=== PATIENT | female | born 1940 | race Caucasian/White ===

== ENCOUNTER 2018-08-17 09:27 | Emergency (ER) | payer OTHER ==
[~2018-08-17] VITALS: Ht 154.9 cm; Wt 47.6 kg
[~2018-08-17 09:27] MED LIST: NORVASC2.5 MG
[2018-08-17] MEDS ORDERED: METOPROLOL SUCC25 MG (10:04)
[2018-08-17] MEDS ORDERED: CRESTOR10 MG (10:04)
== END 2018-08-17 14:44 | disposition home or self-care (01) ==
LOC: ER 09:27
DX: K52.89 Other specified noninfective gastroenteritis and colitis (principal)

== ENCOUNTER 2020-07-25 04:40 | Emergency (ER) | payer OTHER ==
[~2020-07-25] VITALS: Ht 157.5 cm; Wt 48.1 kg
[~2020-07-25 04:40] MED LIST changes: +CRESTOR10 MG; +METOPROLOL SUCC25 MG
[2020-07-25] MEDS ORDERED: ATACAND32 MG PO ×2 (04:52→09:46)
[2020-07-25] MEDS ORDERED: TOPROL XL25 M1 PO (09:46)
[2020-07-25] MEDS ORDERED: XANAX0.25 MG PO (09:46)
== END 2020-07-25 09:49 | disposition home or self-care (01) ==
LOC: ER 04:40
DX: R42 Dizziness and giddiness (principal); R11.0 Nausea

== ENCOUNTER 2020-08-28 14:10 | Emergency (ER) | payer OTHER ==
[~2020-08-28] VITALS: Ht 154.9 cm; Wt 48.1 kg
[~2020-08-28 14:10] MED LIST changes: +ATACAND32 MG PO; +TOPROL XL25 M1 PO; +XANAX0.25 MG PO
[2020-08-28] MEDS ORDERED: CRESTOR20 MG PO (14:33)
[2020-08-28] MEDS ORDERED: NORVASC5 MG PO (14:33)
[2020-08-28] MEDS ORDERED: XANAX0.25 MG PO (14:34)
[2020-08-28] MEDS ORDERED: DRAMAMINE LESS25 MG PO (14:35)
[2020-08-28] MEDS ORDERED: BENADRYL ALLERG25 MG PO (19:00)
== END 2020-08-28 18:54 | disposition home or self-care (01) ==
LOC: ER 14:10
DX: R42 Dizziness and giddiness (principal)

== ENCOUNTER 2021-02-05 13:17 | Emergency (ER) | payer OTHER ==
[~2021-02-05] VITALS: Ht 154.9 cm; Wt 53.5 kg
[~2021-02-05 13:17] MED LIST changes: +BENADRYL ALLERG25 MG PO; +CRESTOR20 MG PO; +DRAMAMINE LESS25 MG PO; +NORVASC5 MG PO
[2021-02-05] MEDS ORDERED: FOLIC ACID20 MG (13:39)
[2021-02-05] MEDS ORDERED: DICY20TA PO (18:21)
[2021-02-05] MEDS ORDERED: PEPCID AC20 MG PO (18:21)
[2021-02-05] MEDS ORDERED: CARAFATE1 GM PO (18:21)
== END 2021-02-05 19:12 | disposition home or self-care (01) ==
LOC: ER 13:17
DX: R19.7 Diarrhea, unspecified (principal); Z20.822 Contact with and (suspected) exposure to COVID-19

== ENCOUNTER → 2024-10-14 | Emergency (ER) | payer OTHER ==
[~2024-10-14] VITALS: Ht 154.9 cm; Wt 52.6 kg
[~2024-10-14] MED LIST changes: +CANDESARTAN CIL32 MG PO; +CARAFATE1 GM PO; +DICY20TA PO; +ELIQUIS2.5 MG PO; +ENALAPRIL MALEA10 MG; +FOLIC ACID20 MG; +HYOSCYAMINE SULFATE 0.125 MG TAB.SUBL ONE; +HYOSCYAMINE SULFATE 0.125 MG TAB.SUBL SL ONE; +MAG HYDROX/ALUMINUM HYD/SIMETH 30 ML BLIST.PACK PO ONE; +MAG HYDROX/ALUMINUM HYD/SIMETH 30 ML BLIST.PACK PO STA; +METOPROLOL SUCC25 MG PO; +PEPCID AC20 MG PO
== END | disposition home or self-care (01) ==
LOC: ER 23:12
DX: K29.70 Gastritis, unspecified, without bleeding (principal); K59.01 Slow transit constipation

== ENCOUNTER → 2025-01-01 | Emergency (ER) | payer OTHER ==
[~2025-01-01] VITALS: Ht 152.4 cm; Wt 47.6 kg
[~2025-01-01] MED LIST changes: +ACETAMINOPHEN 500 MG GEL..CAP PO ONE; -HYOSCYAMINE SULFATE 0.125 MG TAB.SUBL ONE; -HYOSCYAMINE SULFATE 0.125 MG TAB.SUBL SL ONE; -MAG HYDROX/ALUMINUM HYD/SIMETH 30 ML BLIST.PACK PO ONE; -MAG HYDROX/ALUMINUM HYD/SIMETH 30 ML BLIST.PACK PO STA
[2025-01-01 13:05] LABS: URINE BILIRRUBIN NEGATIVE (NEGATIVE); URINE BLOOD MODERATE; URINE GLUCOSE NEGATIVE (NEGATIVE); URINE KETONE NEGATIVE (NEGATIVE); URINE LEUKOCYTE NEGATIVE; URINE NITRATE NEGATIVE; URINE PROTEIN NEGATIVE (NEGATIVE); URINE UROBILINOGEN 0.2 E.U./dl
[2025-01-01 13:06] LABS: BASO % 0.7 % (0.1-1.2); EOS # 0.17 (0.04-0.54); EOS % 1.1 % (0.7-7.0); LYMPH # 3.28 (1.18-3.74); LYMPH % 21.5 % (19.3-53.1); MEAN PLATELET VOLUME 10.10 fl (9.4-12.4); MONO # 1.31 (0.24-0.82); MONO % 8.6 % (4.7-12.5); NEUT # 10.33 (1.56-6.13); NEUT % 67.8 % (34.0-71.1); RED CELL DISTRIBUTION WIDTH 13.6 % (11.6-14.4)
[2025-01-01 13:10] LABS: URINE APPEARANCE CLEAR; URINE COLOR YELLOW
[2025-01-01 13:11] LABS: URINE WBC 0-2 /hpf
[2025-01-01 13:12] LABS: URINE BACTERIA FEW; URINE CRYSTALS NEGATIVE /HPF; URINE MUCUS NEGATIVE
[2025-01-01 13:26] LABS: COVID-19 AG NEGATIVE (NEGATIVE)
== END | disposition home or self-care (01) ==
LOC: ER 12:13
PROVIDERS: General Practice
DX: R42 Dizziness and giddiness (principal); I25.10 Atherosclerotic heart disease of native coronary artery without angina pectoris; I10 Essential (primary) hypertension; D72.829 Elevated white blood cell count, unspecified; Z20.822 Contact with and (suspected) exposure to COVID-19